=== PATIENT | male | born 1970 | race Caucasian/White ===

== ENCOUNTER 2024-03-12 10:45 | Outpatient (CLI) | payer BC, SELFPAY | END 2024-03-12 10:46 | disposition home or self-care (01) | PROVIDERS: PCP Family Medicine; Visit Provider Family Medicine | DX: Z00.00 Encounter for general adult medical examination without abnormal findings (principal); E66.9 Obesity, unspecified; Z13.6 Encounter for screening for cardiovascular disorders; Z13.1 Encounter for screening for diabetes mellitus | CPT/HCPCS: 80053; 80061 ==

== ENCOUNTER 2024-04-01 09:30 | Outpatient (CLI) | payer BC, SELFPAY ==
--- OUTSIDE RECORDS SUMMARY | 2024-04-04 06:48 | XMS_ITS | Clinical Summary ---
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 Immunizations Name Administration Dates Next Due Tdap 12/03/2010 Family History Medical History Relation Name Comments Other Father degenerative ne rve disease Other Sister 2 lupus Relation Name Status Comments Brother 1 Alive x5 Brother 2 (Age 18) drowning Daughter Alive x3 Father Maternal Grandfather Maternal Grandmother Mother Alive Paternal Grandfather Paternal Grandmother Sister 1 Alive x5 Sister 2 Social History Tobacco Use Types Packs/Day Years Used Date Smoking Tobacco: Never Smokeless Tobacco: Never Tobacco Cessation:Counseling Given: Yes Alcohol Use Standard Drinks/Week Comments Yes 0 (1 standard drink = 0.6 oz pur e alcohol) occasionally Sex and Gender Information Value Date Recorded Sex Assigned at Not on file Gender Identity Not on file Sexual Orientation Not on file Obstetrics History Last Filed Vital Signs Vital Sign Reading Time Taken Comments Blood Pressure 137/90 04/30/2017 10:13 PM REPAIR SERVICER Pulse 84 04/30/2017 10:13 PM REPAIR SERVICER Temperature 36.7 ??C (98 ??F) 04/30/2017 10: 13 PM REPAIR SERVICER Respiratory Rate 14 04/30/2017 10:1 3 PM REPAIR SERVICER Oxygen Saturation 98% 04/30/2017 10: 13 PM REPAIR SERVICER Inhaled Oxygen Concentration - - Weight 125.2 kg (276 lb 1.6 oz) 017 10:00 PM REPAIR SERVICER Height 193 cm (6' 4) 04/30/2017 10:18 PM REPAIR SERVICER Body Mass Index 33.61 04/30/2017 10:00 PM REPAIR SERVICER Plan of Treatment Health Maintenance Due Date Last Done Comments Depression screening for age 12+ 1982 HIV for age 15-65 1985 BMI (ht and wt on same day) for age 18+ 1988 Hepatitis C screening for ag e 18-79 1988 Colonoscopy through age 75 10/11/2015 Lipids for age 45-75 10/11/2015 Zoster (shingles) series for age 50+ (1 of 2) 2020 Tetanus booster 12/03/2020 12/03/2010 COVID-19 vaccine series (2023- season) 2024 Influenza for age 50-64 01/21/2024 Tdap Completed 12/03/2010 Pneumococcal series for age 6-64 Aged Out No longer eligible based on patient's age to complete this topic Care Teams Inspector Missile Relationship Specialty Start Date End Date Eliel Ordonez MD PCP - General Family Practice 04/20/15
== END 2024-04-01 09:31 | disposition home or self-care (01) ==
LOC: NFLDREF 04-04 06:47
PROVIDERS: PCP Family Medicine; Referring Provider Family Medicine; Visit Provider Family Medicine
DX: R73.01 Impaired fasting glucose (principal)
CPT/HCPCS: 82947

== ENCOUNTER 2024-07-22 08:45 | Outpatient (CLI) | payer BC, SELFPAY | END 2024-07-22 08:46 | disposition home or self-care (01) | LOC: NFLDREF 07-23 00:35 | PROVIDERS: PCP Family Medicine; Referring Provider Family Medicine; Visit Provider Family Medicine | DX: E78.5 Hyperlipidemia, unspecified (principal); E11.65 Type 2 diabetes mellitus with hyperglycemia; Z79.84 Long term (current) use of oral hypoglycemic drugs | CPT/HCPCS: 80061; 84450; 84460 ==

== ENCOUNTER 2025-02-12 08:23 | Outpatient (CLI) | payer BC, SELFPAY | END 2025-02-12 08:24 | disposition home or self-care (01) | LOC: NFLDREF 02-14 14:45 | PROVIDERS: PCP Family Medicine; Referring Provider Family Medicine; Visit Provider Family Medicine | DX: Z13.1 Encounter for screening for diabetes mellitus (principal); Z13.6 Encounter for screening for cardiovascular disorders | CPT/HCPCS: 80061; 82947 ==

== ENCOUNTER 2025-04-07 08:26 | Outpatient (CLI) | payer BC, SELFPAY | END 2025-04-07 08:27 | disposition home or self-care (01) | PROVIDERS: PCP Family Medicine; Visit Provider Family Medicine | DX: Z00.00 Encounter for general adult medical examination without abnormal findings (principal) | CPT/HCPCS: 80053; 82043; 82570 ==